=== PATIENT | female | born 1995 | race Caucasian/White ===

== ENCOUNTER 2017-07-08 15:55 | Emergency (ER) | payer OTHER ==
[~2017-07-08] VITALS: Ht 162.6 cm; Wt 59.0 kg
[~2017-07-08 15:55] MED LIST: BIRTH CONTROL; NOHOMEMEDICATIONS
[2017-07-08 16:40] LABS: HEMATOCRIT 37.7 % (37.0-47.0); HEMOGLOBIN 12.8 gm/dL (12.0-15.0); MCH 32.1 pg (26.0-34.0); MCHC 33.9 g/dL (28.0-37.0); MCV 94.7 fL (80.0-100.0); MPV 7.9 fl. (7.2-11.1); NUCLEATED RBCS 0 /100WBC; PLATELET COUNT* 330 thou/uL (150-400); RBC 3.98 mil/uL (4.20-5.00); RDW-CV 12.8 % (10.5-14.5); WBC 12.8 thou/uL (4.0-11.0)
[2017-07-08 16:48] LABS: CALCIUM 9.3 mg/dL (8.5-10.1); CREATININE 0.6 mg/dL (0.6-1.3); POTASSIUM 3.2 mmol/L (3.5-5.1)
[2017-07-08 17:01] LABS: TOTAL BILIRUBIN 0.8 mg/dL (<0.1-1.0); TOTAL PROTEIN 7.9 g/dL (6.4-8.2)
[2017-07-08 17:14] LABS: URINE BILIRUBIN NEGATIVE (Negative); URINE BLOOD NEGATIVE (Negative); URINE CLARITY CLEAR; URINE COLOR YELLOW; URINE GLUCOSE-RANDOM NEGATIVE (Negative); URINE LEUKOCYTES-REFLEX TRACE (Negative); URINE NITRITE-REFLEX NEGATIVE (Negative); URINE PROTEIN NEGATIVE (Negative); URINE UROBILINOGEN 0.2 E.U./dl (0.2-1.0)
[2017-07-08 17:23] LABS: INFLUENZA A ANTIGEN None Detected (None Detect); INFLUENZA B ANTIGEN None Detected (None Detect)
[2017-07-08 17:31] LABS: URINE KETONES 3+ (Negative)
[2017-07-08 17:40] LABS: ACETEST (KETONE CONFIRMATORY) Negative (Negative)
[2017-07-08 17:47] LABS: BACTERIA-REFLEX 1-9 Few /HPF (None Seen); CASTS None Seen /LPF (None Seen); CRYSTALS None Seen /LPF (None Seen); MUCUS 4-6 Moderate strn/LPF (None Seen); SQUAMOUS 4-10 Moderate /LPF (0-3); URINE RBC None Seen /HPF (0-2); URINE WBC-REFLEX 0-5 Rare /HPF (0-5)
[2017-07-08 18:02] LABS: ABSOLUTE BASOPHILS 0.3 thou/uL (0.0-0.2); ABSOLUTE LYMPHOCYTES 0.3 thou/uL (0.8-5.3); ABSOLUTE MONOCYTES 0.3 thou/uL (0.0-1.2); PLATELET ESTIMATE ADEQUATE
[2017-07-08] MEDS ORDERED: ZOFRAN4 MG PO (19:50)
[2017-07-08 20:00] VITALS: BP 102/45
--- NOTE | 2017-07-09 14:40 | EKG ---
[place] [address] ELECTROCARDIOGRAM REPORT Name: DEENA HALE Room: [facility] ([place], [place])#: [id number] Admission: 07/08/17 Attend Phys: Discharge: 07/08/17 Date of : [birth year] Report #: [id number] THIS REPORT FOR: //name// [facility] ED Test Date: 2017-07-08 Test Time: 16:04:59 Pat Name: DEENA HALE Department: Room: Gender: F Account Developer: : 1995 Requested By: Sylvie Robledo Order Number: [id number] Lara MD: Víctor Bai Measurements Intervals [place] Rate: 86 P: 43 SC: 145 QRS: 89 QRSD: 95 T: 41 QT: 349 QTc: 418 Interpretive Statements Sinus rhythm Baseline wander in lead(s) II,aVR,aVF,V1,V3 No previous ECG available for comparison Electronically Signed On 07-09-2017 14:40:13 [employer] by Víctor Bai [email or web address] <ELECTRONICALLY SIGNED> By: Víctor Bai MD, [facility] 07/09/17 1440 D: 01/1603 160 Víctor Bai MD, FACC /EPI
== END 2017-07-08 20:01 | disposition home or self-care (01) ==
LOC: M.ERS 15:55
PROVIDERS: Nurse Practitioner Family
DX: B34.9 Viral infection, unspecified (principal)